=== PATIENT | female | born 1990 | race Caucasian/White ===

== ENCOUNTER 2018-10-31 12:22 | Emergency (ER) | payer SELFPAY ==
[~2018-10-31] VITALS: Ht 160 cm; Wt 63.5 kg
[2018-10-31 12:27] VITALS: BP 127/70
--- NOTE | 2018-10-31 12:35 | NUR ---
PT AMBULATED TO ED BED 5
--- NOTE | 2018-10-31 12:40 | NUR ---
PT STATED HAVING ALLERGIC REACTION X 4 DAYS, ITCHING, RUNNING NOSE, FEELING LIKE THROAT SWOLLEN, BEEN TAKING ALLERGY MED OTC. HX. OF HAY FEVER, STATED SYMPTOMS HAPPENED AFTER DRANK BEER. BL LUNG CLEAR. AIRWAY INTACT. VSS; PATIENT POSITIONED FOR COMFORT; HOB ELEVATED; BEDRAILS UP X1; BED DOWN. ER MD MADE AWARE OF PT STATUS.
[2018-10-31 12:46] VITALS: BP 127/70
--- NOTE | 2018-10-31 12:46 | NUR ---
Patient discharged with v/s stable. Written and verbal after care instructions given and explained. Patient alert, oriented and verbalized understanding of instructions. Ambulatory with steady gait. All questions addressed prior to discharge. ID band removed. Patient advised to follow up with PMD. Rx of prednisone and diphenhydramine given. Patient educated on indication of medication including possible reaction and side effects. Opportunity to ask questions provided and answered.
== END 2018-10-31 12:46 | disposition home or self-care (01) ==
LOC: MED 12:22
DX: J30.9 Allergic rhinitis, unspecified (principal); Z88.6 Allergy status to analgesic agent; Z98.890 Other specified postprocedural states
CPT/HCPCS: 99283

== ENCOUNTER 2021-03-02 15:39 | Emergency (ER) | payer SELFPAY ==
[~2021-03-02] VITALS: Ht 160 cm; Wt 73.9 kg
[2021-03-02 15:55] VITALS: BP 113/77
--- NOTE | 2021-03-02 16:07 | NUR ---
Emesis bag provided; patient vomiting.
--- NOTE | 2021-03-02 16:07 | NUR ---
Patient ambulated to bed 12 with steady/even gait.
[2021-03-02] MEDS ORDERED: ONDANSETRON 4 MG ODT PO ONE ×2 (16:25→17:45)
--- NOTE | 2021-03-02 16:41 | NUR ---
30 Y/O F BIB SPOUSE FROM HOME, PATIENT PRESENTS TO ED WITH C/O N/V/D WITH 10X EPISODES OF EMESIS AND DIARRHEA. PT STATES ABD PAIN IS SUPRAPUBIC 8/10. UPON ASSESSMENT, NORMOACTIVE BOWEL SOUNDS X4, LUQ TENDER; SKIN IS PINK/WARM/DRY; AAOX4 WITH EVEN AND STEADY GAIT; LUNGS CLEAR BL; HR EVEN AND TACHY; PT DENIES ANY FEVER, CP, SOB, OR COUGH AT THIS TIME; PATIENT POSITIONED FOR COMFORT; HOB ELEVATED; BEDRAILS UP X2; BED DOWN. ER MD MADE AWARE OF PT STATUS. PMH: DENIES ALLERGY: AMOXICILLIN, IBUPROFEN, "SOMETHING WITH A K" MED: THERAFLU, PEPCID
[2021-03-02] MEDS ORDERED: ONDA4TAB PO (17:45)
[2021-03-02] MEDS ORDERED: ACET-10509 PO (17:45)
[2021-03-02] MEDS ORDERED: METOCLOPRAMIDE 10 MG TAB PO ONE (17:45)
[2021-03-02] MEDS ORDERED: ACETAMINOPHEN 325 MG TAB PO ONE (17:45)
[2021-03-02 18:14] VITALS: BP 113/77
--- NOTE | 2021-03-02 18:14 | NUR ---
Patient discharged with v/s stable. Written and verbal after care instructions given and explained. Patient alert, oriented and verbalized understanding of instructions. Ambulatory with to car. All questions addressed prior to discharge. ID band removed. Patient advised to follow up with PMD. Rx of ZOFRAN, IBUPROFEN given. Patient educated on indication of medication including possible reaction and side effects. Opportunity to ask questions provided and answered.
== END 2021-03-02 18:14 | disposition home or self-care (01) ==
LOC: MED 15:39
DX: R11.2 Nausea with vomiting, unspecified (principal); R10.32 Left lower quadrant pain; R19.7 Diarrhea, unspecified; Z88.6 Allergy status to analgesic agent; Z88.1 Allergy status to other antibiotic agents
CPT/HCPCS: 81002; 81025; 99284; J8597; Q0162